=== PATIENT | female | born 2005 | race Hispanic/Latino ===

== ENCOUNTER 2024-12-25 18:01 | Emergency (ER) | payer OTHER ==
[~2024-12-25] VITALS: Ht 167.6 cm; Wt 77.1 kg
[2024-12-25 19:11] LABS: BILIRUBIN,URINE NEGATIVE (NEGATIVE); CLARITY,URINE CLEAR (CLEAR); COLOR,URINE YELLOW (YELLOW); GLUCOSE, URINE NEGATIVE (NEGATIVE); KETONES,URINE NEGATIVE (NEGATIVE); LEUKOCYTE ESTERASE ,URINE NEGATIVE (NEGATIVE); NITRITE,URINE NEGATIVE (NEGATIVE); PH,URINE 5.5 (5 - 7); PROTEIN,URINE DIPSTICK NEGATIVE (NEGATIVE); URINE UROBILINOGEN 0.2 mg/dL (0.2 - 1)
[2024-12-25 19:13] LABS: PREGNANCY TEST, URINE POSITIVE (NEGATIVE)
[2024-12-25 19:27] LABS: WBC,URINE (MAN) 0-5 /HPF (0-5)
[2024-12-25 19:28] LABS: BACTERIA,URINE MODERATE /HPF
[2024-12-25 21:08] VITALS: PULSE 64; RESP 16; TEMP 98.8; O2SAT 98
[2024-12-25] MEDS ORDERED: AUGMENTIN 500-1 EACH PO (21:09)
== END 2024-12-25 21:08 | disposition home or self-care (01) ==
LOC: ER 18:11
DX: O02.1 Missed abortion (principal)
CPT/HCPCS: 76830; 81001; 81025; 99283